=== PATIENT | female | born 1975 | race Caucasian/White ===

== ENCOUNTER 2017-09-23 19:20 | Emergency (ER) | payer MEDICAID ==
[2017-09-23 20:04] LABS: BASOPHILS % (AUTO) 0.4 %; EOSINOPHILS # (AUTO) 0.1 10^3/uL (0.0-0.7); EOSINOPHILS % (AUTO) 2.2 %; HGB - HEMOGLOBIN 13.9 g/dL (12.0-16.0); LYMPHOCYTES # (AUTO) 0.4 10^3/uL (1.5-3.5); LYMPHOCYTES % (AUTO) 8.8 %; MEAN CORPUSCULAR HEMOGLOBIN 32.8 pg (27.0-31.0); MEAN CORPUSCULAR HGB CONC 33.8 g/dL (32.0-36.0); MEAN CORPUSCULAR VOLUME 97.1 fL (81.0-99.0); MEAN PLATELET VOLUME 7.6 fL (7.9-10.8); MONOCYTES # (AUTO) 0.4 10^3/uL (0.0-1.0); MONOCYTES % (AUTO) 8.2 %; NEUTROPHILS % (AUTO) 80.4 %; PLT - PLATELET COUNT 241 10^3/uL (130-450); RED BLOOD COUNT 4.23 10^6/uL (4.20-5.40); RED CELL DISTRIBUTION WIDTH 14.5 % (12.0-15.0)
[2017-09-23 20:14] LABS: ALBUMIN 3.9 g/dL (3.2-5.5); ALBUMIN/GLOBULIN RATIO 1.1 (1.0-2.2); BILIRUBIN,TOTAL 1.1 mg/dL (0.2-1.0); CALCIUM 9.1 mg/dL (8.5-10.3); CREATININE 0.7 mg/dL (0.4-1.0); TOTAL PROTEIN 7.5 g/dL (6.7-8.2)
[2017-09-23] MEDS ORDERED: SODIUM CHLORIDE 0.9% 1,000 ML IV ONE ×2 (20:24→21:26)
[2017-09-23] MEDS ORDERED: KETOROLAC 60 MG/2 ML VIAL IVP STA (20:24)
[2017-09-23] MEDS ORDERED: ONDANSETRON 4 MG/2 ML VIAL IVP STA (20:24)
[2017-09-23] MEDS ORDERED: MORPHINE 10 MG/ML VIAL IVP STA (21:26)
--- NOTE | 2017-09-23 21:31 | CT Report ---
EXAM: CT HEAD EXAM DATE: 09/23/2017 09:14 PM. CLINICAL HISTORY: Headaches, hx of breast CA. COMPARISON: None. TECHNIQUE: Multiaxial CT images were obtained from the foramen magnum to the vertex. Reformats: Coron al. IV contrast: None. In accordance with CT protocol optimization, one or more of the following dose reduction techniques w ere utilized for this exam: automated exposure control, adjustment of mA and/or KV based on patient s ize, or use of iterative reconstructive technique. FINDINGS: Parenchyma: No intraparenchymal hemorrhage. No evidence of mass, midline shift, or CT findings of inf arction. Johnson-white differentiation is distinct. Extraaxial Spaces: Normal for age. No subdural or epidural collections. Ventricles: Normal in size and position. Sinuses and Orbits: Imaged paranasal sinuses, orbits, and mastoids show no significant abnormality. Bones: Unremarkable. Other: None. IMPRESSION: Normal head CT. [facility] Referring Provider Line: [phone] SITE ID: [id number]
[2017-09-23 21:39] VITALS: BP 144/109
[2017-09-23] MEDS ORDERED: PSEUDOEPHEDRINE 30 MG TABLET PO STA (22:12)
[2017-09-23 22:27] LABS: BILIRUBIN,URINE NEGATIVE (NEGATIVE); CLARITY,URINE CLEAR (CLEAR); GLUCOSE, URINE (UA) NEGATIVE (NEGATIVE); KETONES,URINE (UA) NEGATIVE (NEGATIVE); LEUKOCYTE ESTERASE, URINE NEGATIVE (NEGATIVE); NITRITE,URINE NEGATIVE (NEGATIVE); OCCULT BLOOD,URINE NEGATIVE (NEGATIVE); PH,URINE 6.5 PH (5.0-7.5); PROTEIN,URINE NEGATIVE (NEGATIVE); UROBILINOGEN,URINE 0.2 (NORMAL) E.U./dL (NORMAL)
[2017-09-23] MEDS ORDERED: ONDANSETRON ODT 4 MG Prepack 2 TL STA (22:39)
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
== END 2017-09-23 22:49 | disposition home or self-care (01) ==
LOC: ED 19:20
DX: J06.9 Acute upper respiratory infection, unspecified (principal); R51 Headache; C50.919 Malignant neoplasm of unspecified site of unspecified female breast; Z90.10 Acquired absence of unspecified breast and nipple; I10 Essential (primary) hypertension; Z92.21 Personal history of antineoplastic chemotherapy; Z92.3 Personal history of irradiation
CPT/HCPCS: 36415; 70450; 80053; 81003; 83690; 85025; 87040; 87275; 87276; 96361; 96374; 96375; 99283; 99284; A9270; 81001; 87086

== ENCOUNTER 2017-11-26 08:00 | Outpatient (CLI) | payer MEDICAID ==
[2017-11-26 13:17] LABS: ALBUMIN 3.8 g/dL (3.2-5.5); ALKALINE PHOSPHATASE 105 IU/L (42-121); ALT ALANINE AMINOTRANSFERASE 61 IU/L (10-60); AST ASPARTATE AMINOTRANSFERASE 71 IU/L (10-42); BUN - BLOOD UREA NITROGEN 12 mg/dL (6-20); CARBON DIOXIDE - CO2 28 mmol/L (21-32); CHLORIDE 98 mmol/L (101-111); CHOL/HDL RATIO 4.4 (<4.4); CHOLESTEROL 215 mg/dL; CREATININE 0.8 mg/dL (0.4-1.0); GFR - MDRD 78 (>89); GLUCOSE 110 mg/dL (70-100); HDL CHOLESTEROL 49 mg/dL; LDL CHOLESTEROL,CALCULATED 118 mg/dL; LDL/HDL RATIO 2.4 (<4.4); SODIUM 134 mmol/L (135-145); TOTAL PROTEIN 7.6 g/dL (6.7-8.2); VLDL CHOLESTEROL 48 mg/dL
== END 2017-11-26 08:01 | disposition home or self-care (01) ==
LOC: LAB.WCP 08:00
PROVIDERS: ATTEND Physician Assistant Medical
DX: Z00.00 Encounter for general adult medical examination without abnormal findings (principal)
CPT/HCPCS: 36415; 80053; 80061; 83721; 84443

== ENCOUNTER 2018-08-10 10:21 | Emergency (ER) | payer OTHER ==
[2018-08-10 11:07] LABS: BASOPHILS % (AUTO) 0.5 %; EOSINOPHILS % (AUTO) 0.9 %; HGB - HEMOGLOBIN 12.8 g/dL (12.0-16.0); LYMPHOCYTES # (AUTO) 0.2 10^3/uL (1.5-3.5); LYMPHOCYTES % (AUTO) 5.3 %; MEAN CORPUSCULAR HEMOGLOBIN 36.3 pg (27.0-31.0); MEAN CORPUSCULAR HGB CONC 34.8 g/dL (32.0-36.0); MEAN CORPUSCULAR VOLUME 104.5 fL (81.0-99.0); MEAN PLATELET VOLUME 7.6 fL (7.9-10.8); MONOCYTES # (AUTO) 0.2 10^3/uL (0.0-1.0); MONOCYTES % (AUTO) 6.6 %; NEUTROPHILS # (AUTO) 2.8 10^3/uL (1.5-6.6); NEUTROPHILS % (AUTO) 86.7 %; PLT - PLATELET COUNT 194 10^3/uL (130-450); RED BLOOD COUNT 3.53 10^6/uL (4.20-5.40); RED CELL DISTRIBUTION WIDTH 14.4 % (12.0-15.0); WHITE BLOOD COUNT 3.2 x10^3/uL (4.8-10.8)
[2018-08-10 11:23] LABS: ALBUMIN/GLOBULIN RATIO 0.9 (1.0-2.2); CALCIUM 9.2 mg/dL (8.5-10.3); CREATININE 0.8 mg/dL (0.4-1.0); TOTAL PROTEIN 8.3 g/dL (6.7-8.2)
[2018-08-10 12:04] LABS: GLUCOSE, URINE (UA) NEGATIVE (NEGATIVE); KETONES,URINE (UA) TRACE mg/dL (NEGATIVE); LEUKOCYTE ESTERASE, URINE NEGATIVE (NEGATIVE); NITRITE,URINE NEGATIVE (NEGATIVE); OCCULT BLOOD,URINE NEGATIVE (NEGATIVE); PROTEIN,URINE NEGATIVE (NEGATIVE); UROBILINOGEN,URINE 1 (NORMAL) E.U./dL (NORMAL)
[2018-08-10 12:08] LABS: BILIRUBIN,URINE NEGATIVE (NEGATIVE); CLARITY,URINE CLEAR (CLEAR); ICTOTEST,URINE NEGATIVE
[2018-08-10] MEDS ORDERED: ONDANSETRON 4 MG/2 ML VIAL IVP STA (12:14)
[2018-08-10] MEDS ORDERED: LOPERAMIDE 2 MG CAPSULE PO STA (12:14)
[2018-08-10] MEDS ORDERED: SODIUM CHLORIDE 0.9% 1,000 ML IV ONE (12:14)
[2018-08-10] MEDS ORDERED: LACTATED RINGERS 1,000 ML IV STA (12:15)
--- NOTE | 2018-08-10 12:17 | ED Physician Documentation ---
PD HPI NVD - Stated complaint Stated Complaint: N/V/D - Chief complaint Chief Complaint: Abd Pain - History obtained from History obtained from: Patient, Family - History of Present Illness Timing - onset: Yesterday (Sick since yesterday with vomiting and diarrhea. There is no significant abdominal pain but she did have a fever 103 at home. Her granddaughter had a similar illness marked with vomiting and diarrhea. In contrast of the nurse's notes she has not been sick for 3 days. She has a history of breast cancer in remission, not currently under chemotherapy. She has had a hysterectomy and oophorectomy as well as bilateral mastectomy. More recently she has had elevated liver enzymes, is up to 1100 at another facility. So today's liver enzymes are better. She is being worked up for hemochromatosis and had therapeutic phlebotomy for same.) Review of Systems Ten Systems: 10 systems reviewed and negative Constitutional: reports: Fever, Chills, Fatigue Nose: denies: Rhinorrhea / runny nose, Congestion Cardiac: denies: Chest pain / pressure, Palpitations Respiratory: denies: Dyspnea, Cough GI: reports: Nausea, Vomiting, Diarrhea. 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: Hysterectomy, Mastectomy, Other - Present Medications Home Medications: Ambulatory Orders Medication Instructions Recorded Confirmed Loperamide [Imodium] 2 mg PO QID PRN #10 capsule 08/10/18 Ondansetron Odt [Zofran] 4 mg TL Q6H PRN #10 tablet 08/10/18 Oxycodone HCl/Acetaminophen 1 - 2 each PO Q6H PRN #14 tablet 08/10/18 [Percocet 5-325 mg Tablet] Venlafaxine ER [Effexor ER] 1 tab PO DAILY 08/10/18 08/10/18 - Allergies Allergies/Adverse Reactions: Allergies Allergy/AdvReac Type Severity Reaction Status Date / Time docetaxel Allergy Unknown Verified 08/10/18 10:50 paclitaxel Allergy Unknown Verified 08/10/18 10:50 peanut Allergy Unknown Verified 08/10/18 11:43 Sulfa (Sulfonamide Allergy Edema Verified 08/10/18 11:43 Antibiotics) morphine AdvReac Itching Verified 08/10/18 14:26 - Social History Does the pt smoke?: No Smoking Status: Never smoker Does the pt drink ETOH?: Yes Does the pt have substance abuse?: No - Immunizations Immunizations are current?: Yes - POLST Patient has POLST: No PD ED PE NORMAL - Vitals Vital signs reviewed: Yes - General General: Alert and oriented X 3, No acute distress - HEENT HEENT: PERRL - Neck Neck: Supple, no meningeal sign, No bony TTP - Cardiac Cardiac: RRR, No murmur - Respiratory Respiratory: No respiratory distress, Clear bilaterally - Abdomen Abdomen: Normal bowel sounds, Soft, Non tender - Derm Derm: Normal color, Warm and dry - Extremities Extremities: No edema, No calf tenderness / cord - Neuro Neuro: Alert and oriented X 3, Normal speech Results - Vitals Vitals: Vital Signs - 24 hr 08/10/18 08/10/18 08/10/18 10:42 11:54 13:40 Temperature 36.9 C 37.1 C Heart Rate 108 H 106 H 100 Respiratory 18 16 Rate Blood Pressure 140/93 H 154/98 H O2 Saturation 106 H 99 99 08/10/18 08/10/18 08/10/18 15:00 15:15 16:12 Temperature 37.3 C Heart Rate 84 96 87 Respiratory 14 16 18 Rate Blood Pressure 140/97 H 140/97 H 113/77 O2 Saturation 98 98 99 Oxygen O2 Source Room air - Labs Labs: Laboratory Tests 08/10/18 08/10/18 08/10/18 10:52 11:02 11:02 WBC 3.2 L RBC 3.53 L Hgb 12.8 Hct 36.9 L MCV 104.5 H MCH 36.3 H MCHC 34.8 RDW 14.4 Plt Count 194 MPV 7.6 L Neut # (Auto) 2.8 Lymph # (Auto) 0.2 L [place] # (Auto) 0.2 Eos # (Auto) 0.0 Baso # (Auto) 0.0 Absolute Nucleated RBC 0.00 Nucleated RBC % 0.0 Sodium 133 L Potassium 3.6 Chloride 98 L Carbon Dioxide 25 Anion Gap 10.0 BUN 5 L Creatinine 0.8 Estimated GFR (MDRD) 78 L Glucose 110 H Calcium 9.2 Total Bilirubin 1.0 AST 180 H ALT 131 H Alkaline Phosphatase 107 Total Protein 8.3 H Albumin 4.0 Globulin 4.3 H Albumin/Globulin Ratio 0.9 L Lipase 24 Urine Color Urine Clarity Urine pH Ur Specific [place] Urine Protein Urine Glucose (UA) Urine Ketones Urine Occult Blood Urine Nitrite Urine Bilirubin Urine Urobilinogen Ur Leukocyte Esterase Ur Microscopic Review Urine Culture Comments Influenza A (Rapid) Negative Influenza B (Rapid) Negative 08/10/18 11:50 WBC RBC Hgb Hct MCV MCH MCHC RDW Plt Count MPV Neut # (Auto) Lymph # (Auto) [place] # (Auto) Eos # (Auto) Baso # (Auto) Absolute Nucleated RBC Nucleated RBC % Sodium Potassium Chloride Carbon Dioxide Anion Gap BUN Creatinine Estimated GFR (MDRD) Glucose Calcium Total Bilirubin AST ALT Alkaline Phosphatase Total Protein Albumin Globulin Albumin/Globulin Ratio Lipase Urine Color DARK YELLOW Urine Clarity CLEAR Urine pH 5.0 Ur Specific [place] >=1.030 H Urine Protein NEGATIVE Urine Glucose (UA) NEGATIVE Urine Ketones TRACE Urine Occult Blood NEGATIVE Urine Nitrite NEGATIVE Urine Bilirubin NEGATIVE Urine Urobilinogen 1 (NORMAL) Ur Leukocyte Esterase NEGATIVE Ur Microscopic Review NOT INDICATED Urine Culture Comments NOT INDICATED Influenza A (Rapid) Influenza B (Rapid) PD MEDICAL DECISION MAKING - ED course ED course: This is a 43-year-old woman with what seems like viral gastroenteritis. She has known gallstones but is not tender. She is elevated liver enzymes but per her recollection these numbers are actually significantly better than they were at another facility recently. During her emergency department course she had a more prominent headache not associated with neck stiffness. This was resistant to treatment with ibuprofen and she was sent for a CT. But after pain medication her headache resolved. She felt much better and passed a p.o. challenge. Departure - Departure Disposition: 01 Home, Self Care Clinical Impression: Vomiting, Diarrhea, Headache Condition: Good Record reviewed to determine appropriate education?: Yes Instructions: ED Vomiting Diarrhea Nonspecific Ad Prescriptions: Loperamide [Imodium] 2 mg PO QID PRN #10 capsule PRN Reason: Diarrhea Ondansetron Odt [Zofran] 4 mg TL Q6H PRN #10 tablet PRN Reason: Nausea / Vomiting Oxycodone HCl/Acetaminophen [Percocet 5-325 mg Tablet] 1 - 2 each PO Q6H PRN #14 tablet PRN Reason: pain Comments: ASK YOUR ONCOLOGIST ABOUT THE APPROPRIATENESS OF WORKING YOU UP FOR SYL'S DISEASE IF HE HAS NOT ALREADY/. If not better in 36 hours or anytime if worse please return for reevaluation. Discharge Date/Time: 08/10/18 16:12
[2018-08-10] MEDS ORDERED: IBUPROFEN 600 MG TABLET PO STA (13:10)
[2018-08-10] MEDS ORDERED: MORPHINE 2 MG/ML CARPUJECT IVP STA (14:09)
[2018-08-10] MEDS ORDERED: diphenhydrAMINE INJ 50 MG/ML VIAL IVP STA (14:36)
--- NOTE | 2018-08-10 15:43 | CT Report ---
Reason: headache Procedure Date: 08/10/2018 Accession Number: [id number] / [id number] Procedure: CT - HEAD WO CPT Code: FULL RESULT: EXAM: CT HEAD EXAM DATE: 08/10/2018 02:54 PM. CLINICAL HISTORY: Headache. COMPARISON: HEAD W/O 09/23/2017 9:06 PM. TECHNIQUE: Multiaxial CT images were obtained from the foramen magnum to the vertex. Reformats: Sagittal and coronal. IV contrast: None. In accordance with CT protocol optimization, one or more of the following dose reduction techniques were utilized for this exam: automated exposure control, adjustment of mA and/or KV based on patient size, or use of iterative reconstructive technique. FINDINGS: Parenchyma: No intraparenchymal hemorrhage. No evidence of mass, midline shift, or CT findings of infarction. Johnson-white differentiation is distinct. Extraaxial Spaces: Normal for age. No subdural or epidural collections identified. Ventricles: Normal in size and position. Sinuses and Orbits: Imaged paranasal sinuses, orbits, and mastoids show no significant abnormality. Bones: No evidence of fracture or calvarial defect. Other: None. IMPRESSION: No acute intracranial abnormality. [facility]
[2018-08-10 16:12] VITALS: BP 113/77
== END 2018-08-10 16:12 | disposition home or self-care (01) ==
LOC: ED 10:21
DX: R11.2 Nausea with vomiting, unspecified (principal); R19.7 Diarrhea, unspecified; R51 Headache; I10 Essential (primary) hypertension; Z85.3 Personal history of malignant neoplasm of breast; Z92.21 Personal history of antineoplastic chemotherapy; Z90.710 Acquired absence of both cervix and uterus; Z90.721 Acquired absence of ovaries, unilateral; Z90.13 Acquired absence of bilateral breasts and nipples
CPT/HCPCS: 36415; 70450; 80053; 81003; 83690; 85025; 87275; 87276; 96361; 96374; 96375; 99283; A9270; J1200; J7120; 81001; 87086

== ENCOUNTER 2018-09-11 13:54 | Outpatient (CLI) | payer OTHER ==
--- NOTE | 2018-09-11 17:05 | DEXA Report ---
Reason: L BREAST CANCER Procedure Date: 09/11/2018 Accession Number: [id number] / [id number] Procedure: DEX - Dexa Spine and/or Hip CPT Code: FULL RESULT: EXAM: Dexa Spine and/or Hip DATE: 09/11/2018 2:12 PM CLINICAL HISTORY: L BREAST CANCER TECHNIQUE: Dual energy x-ray absorptiometry (DXA) was performed on a [employer] System. Regions measured are the AP Spine, femoral neck, and if needed forearm. COMPARISON: None. In accordance with the International Society for Clinical Densitometry (ISCD) guidelines, data from previous exams may be reanalyzed using current recommendations and techniques. This is done to allow a more accurate basis for comparison with the current study. FINDINGS: The data for the lumbar spine is as follows: BMD (g/cm/cm) T-SCORE Z-SCORE REGION L1 1.357 1.9 1.4 L2 1.287 0.7 0.3 L3 1.551 2.9 2.5 L4 1.565 3.0 2.6 TOTAL 1.448 2.2 1.8 NOTE: All evaluable vertebrae are used for classification The data for the hip is as follows: BMD (g/cm/cm) T-SCORE Z-SCORE REGION Neck 1.073 0.3 0.5 TOTAL 1.066 0.5 0.4 NOTE: The femoral neck or total proximal femur, whichever is lowest, is used for classification. IMPRESSION: THE WHO CLASSIFICATION BASED ON THE INTERNATIONAL REFERENCE STANDARD IS NORMAL. THE FRACTURE RISK IS NOT INCREASED. RECOMMENDATION: Patients with diagnosis of osteoporosis or osteopenia should have regular bone mineral density assessment. For those eligible for Medicare, routine testing is allowed once every 2 years. Testing frequency can be increased for patients who have rapidly progressing disease or for those who are receiving medical therapy to restore bone mass. COMMENT: World Health Organization (WHO) definitions for osteoporosis and osteopenia: NORMAL BMD: T-score at -1.0 or higher, fracture risk is low OSTEOPENIA BMD: T-score between -1.0 and -2.5, fracture risk is increased. OSTEOPOROSIS BMD: T-score at -2.5 or lower, fracture risk is high. National Osteoporosis Foundation recommends: 1. Obtain adequate dietary calcium (at least 1200 mg per day) and vitamin D (400-800 international units per day). 2. Participate, as appropriate, in regular weightbearing and muscle-strengthening exercise. 3. Avoid tobacco use and reduce alcohol and caffeine intake. 4. For more detailed information see the website at www.NOF.org.
== END 2018-09-11 13:55 | disposition home or self-care (01) ==
LOC: DI 13:54
PROVIDERS: ATTEND Internal Medicine Hematology & Oncology
DX: Z78.0 Asymptomatic menopausal state (principal)
CPT/HCPCS: 77080

== ENCOUNTER 2018-11-30 12:42 | Outpatient (CLI) | payer OTHER ==
--- NOTE | 2018-11-30 14:59 | Ultrasound Report ---
Reason: LUQ BREAST LUMP, HX BILAT MASTECTOMY Procedure Date: 11/30/2018 Accession Number: [id number] / [id number] Procedure: US - Breast Unilateral Limited CPT Code: FULL RESULT: EXAM: Breast Unilateral Limited DATE: 11/30/2018 1:33 PM CLINICAL HISTORY: History of bilateral mastectomy. Currently has left upper quadrant palpable mass. TECHNIQUE: Targeted left breast ultrasound was performed with special attention given to the left chest wall and axilla COMPARISON: No postoperative ultrasounds available. FINDINGS: There is a transverse mastectomy scar in the left chest wall. The palpable abnormality is directly beneath the scar and there is no suspicious abnormality. In addition, the patient complains of left axillary tenderness. Targeted ultrasound of the left axilla is negative. IMPRESSION: Negative examination.
== END 2018-11-30 12:43 | disposition home or self-care (01) ==
LOC: DI 12:42
PROVIDERS: ATTEND Family Medicine
DX: N63.21 Unspecified lump in the left breast, upper outer quadrant (principal); C50.919 Malignant neoplasm of unspecified site of unspecified female breast; Z90.13 Acquired absence of bilateral breasts and nipples; Z17.0 Estrogen receptor positive status [ER+]
CPT/HCPCS: 76642

== ENCOUNTER → 2021-01-30 | Outpatient (CLI) | payer MEDICAID ==
--- NOTE | 2021-01-30 14:54 | XRAY Report ---
PROCEDURE: Shoulder 3 View LT INDICATIONS: FROZEN L SHOULDER TECHNIQUE: 4 views of the left shoulder and one view of the right shoulder were acquired. COMPARISON: None. FINDINGS: Bones: No fractures or dislocations. Mild left acromial downsloping. No suspicious bony lesions. V isualized ribs appear intact. Soft tissues: Small calcification posterior to the left humeral head. Surgical clips in the left axil la. IMPRESSION: 1. Small soft tissue calcification posterior to the left humeral head suggesting calcific tendinitis. 2. Mild left acromial downsloping may predispose to rotator cuff impingement. Reviewed by: Kezia Villagomez MD on 01/30/2021 2:53 PM PDT Approved by: Kezia Villagomez MD on 01/30/2021 2:53 PM PDT Station ID: [id number]
== END ==
LOC: DI.N 08:10
PROVIDERS: ATTEND Physician Assistant
DX: M75.02 Adhesive capsulitis of left shoulder (principal)

== ENCOUNTER 2022-01-11 08:33 | Day surgery (SDC) | payer MEDICARE, MEDICAID ==
[2022-01-11] MEDS ORDERED: LACTATED RINGERS 1,000 ML IV ONE ×2 (08:58→11:56)
--- NOTE | 2022-01-11 10:08 | ANESTHESIA ---
Pre-Anesthesia VS, & Labs - Diagnosis hx of colon polyps, bloody emesis - Procedure colonoscopy and egd Vital Signs: Temp Pulse Resp BP Pulse Ox 36.2 C L 79 20 123/73 100 01/11/22 08:35 01/11/22 08:35 01/11/22 08:35 01/11/22 08:35 01/11/22 08:35 Height: 5 ft 5 in Weight (kg): 70 kg Body Mass Index: 25.7 BMI Classification: Overweight - NPO >8 hours - Is Patient ?: No Home Medications and Allergies Allergies/Adverse Reactions: Allergies Allergy/AdvReac Type Severity Reaction Status Date / Time adhesive tape Allergy Intermediate Rash Verified 01/10/22 11:57 docetaxel Allergy Unknown Verified 05/10/19 11:30 paclitaxel Allergy Unknown Verified 05/10/19 11:30 peanut Allergy Unknown Verified 05/10/19 11:30 Sulfa (Sulfonamide Allergy Edema Verified 05/10/19 11:30 Antibiotics) morphine AdvReac Itching Verified 05/10/19 11:30 Anes History & Medical History - Anesthetic History Anesthesia Complications: reports: Post-Operative Nausea/Vomiting Family history of Anesthesia Complications: Denies Family history of Malignant Hyperthermia: Denies - Medical History Cardiovascular: reports: None Pulmonary: reports: None Gastrointestinal: reports: Colon polyps, Cirrhosis Urinary: reports: Chronic bladder infection Neuro: reports: None Musculoskeletal: reports: None, Chronic back pain Endocrine/Autoimmune: reports: None Blood Disorders: reports: None Skin: reports: None Smoking Status: Never smoker Psychosocial: reports: No issues indicated History of Cancer?: Yes (breast cancer 2017) - Surgical History General: reports: Colonoscopy, Other Gynecologic: reports: Hysterectomy, Oophrectomy, Mastectomy, Other Exam General: Alert, Oriented x3, Cooperative, No acute distress Dental: WNL Mouth Openin Fingerbreadth Mallampati classification: II Thyromental Distance: less than 4 cm Respiratory: Lungs clear, Normal breath sounds, No respiratory distress, No accessory muscle use Cardiovascular: Regular rate, Normal S1, Normal S2, No murmurs Mental/Cognitive Status: Alert/Oriented X3, Normal for patient Cognitive Status: Within normal limits Plan Anesthesia Type: General, Total IV Consent for Procedure(s) Verified and Reviewed: Yes Code Status: Attempt Resuscitation ASA classification: 2-Mild systemic disease Is this case an emergency?: No
[2022-01-11 10:15] LABS: BASOPHILS % (AUTO) 1.2 %; EOSINOPHILS # (AUTO) 0.1 10^3/uL (0.0-0.7); EOSINOPHILS % (AUTO) 1.8 %; HGB - HEMOGLOBIN 11.7 g/dL (12.0-16.0); LYMPHOCYTES # (AUTO) 1.3 10^3/uL (1.5-3.5); MEAN CORPUSCULAR HEMOGLOBIN 34.4 pg (27.0-31.0); MEAN CORPUSCULAR HGB CONC 34.4 g/dL (32.0-36.0); MEAN PLATELET VOLUME 11.1 fL (7.9-10.8); MONOCYTES # (AUTO) 0.3 10^3/uL (0.0-1.0); MONOCYTES % (AUTO) 8.9 %; NEUTROPHILS # (AUTO) 1.5 10^3/uL (1.5-6.6); NEUTROPHILS % (AUTO) 46.8 %; PLT - PLATELET COUNT 189 10^3/uL (130-450); RED CELL DISTRIBUTION WIDTH 15.7 % (12.0-15.0); WHITE BLOOD COUNT 3.3 x10^3/uL (4.8-10.8)
[2022-01-11 10:41] LABS: % IRON SATURATION 84 % (20-50); IRON 178 ug/dL (28-170); TOTAL IRON BINDING CAPACITY 211 ug/dL (250-450); TRANSFERRIN 151 mg/dL (192-382)
[2022-01-11] MEDS ORDERED: MIDAZOLAM 2 MG/2 ML VIAL ONE (10:41)
[2022-01-11] MEDS ORDERED: ONDANSETRON 4 MG/2 ML VIAL ONE ×2 (10:42→12:14)
[2022-01-11] MEDS ORDERED: PROPOFOL 500 MG/50 ML 500 MG/50 ML VIAL ONE (10:57)
[2022-01-11] MEDS ORDERED: PROPOFOL 200 MG/20 ML VIAL IVP ONE ×3 (10:57→12:00)
[2022-01-11] MEDS ORDERED: LIDOCAINE-MPF 2% 5 ML VIAL ONE (10:57)
[2022-01-11 12:18] VITALS: BP 112/74
--- NOTE | 2022-01-11 12:59 | ANESTHESIA POST OP EVALUATION ---
Anesthesia Post Eval - Post Anesthesia Eval Vitals: Last Vital Signs Temp 36.3 C L 01/11/22 11:56 Pulse 75 01/11/22 12:17 Resp 14 01/11/22 12:17 BP 112/74 01/11/22 12:17 Pulse Ox 100 01/11/22 12:17 CV Function Including HR & BP: Stable Pain Control: Satisfactory Nausea & Vomiting: Negative Mental Status: Baseline Respiratory Status: Airway Patent Hydration Status: Satisfactory Anesthesia Complications: None
== END 2022-01-11 08:34 | disposition home or self-care (01) ==
LOC: SDS 08:33
PROVIDERS: ATTEND Surgery
PROC: 0DBK8ZX Excision of Ascending Colon, Via Natural or Artificial Opening Endoscopic, Diagnostic (ICD-10-PCS; 2022-01-11)
PROC: 0DB98ZX Excision of Duodenum, Via Natural or Artificial Opening Endoscopic, Diagnostic (ICD-10-PCS; principal; 2022-01-11 10:30)
PROC: 0DB78ZX Excision of Stomach, Pylorus, Via Natural or Artificial Opening Endoscopic, Diagnostic (ICD-10-PCS; 2022-01-11 10:30)
DX: Z12.11 Encounter for screening for malignant neoplasm of colon (principal); D12.2 Benign neoplasm of ascending colon; K29.50 Unspecified chronic gastritis without bleeding; I10 Essential (primary) hypertension; Z80.9 Family history of malignant neoplasm, unspecified; Z85.3 Personal history of malignant neoplasm of breast
CPT/HCPCS: 36415; 43239; 45380; 82728; 83540; 84466; 85025; J7120

== ENCOUNTER 2022-01-12 08:00 | Outpatient (CLI) | payer MEDICARE, MEDICAID | END 2022-01-12 23:59 | disposition home or self-care (01) | LOC: LAB.N 08:00 | PROVIDERS: ATTEND Nurse Practitioner | DX: R30.0 Dysuria (principal) ==

== ENCOUNTER 2022-01-12 08:00 | Outpatient (CLI) | payer MEDICARE, MEDICAID | END 2022-01-12 23:59 | disposition home or self-care (01) | LOC: LAB.N 08:00 | PROVIDERS: ATTEND Nurse Practitioner | DX: N39.0 Urinary tract infection, site not specified (principal) | CPT/HCPCS: 87077; 87086; 87181 ==

== ENCOUNTER 2022-03-06 08:00 | Outpatient (CLI) | payer MEDICARE, MEDICAID | END 2022-03-06 23:59 | disposition home or self-care (01) | LOC: LAB.WCP 08:00 | PROVIDERS: ATTEND Physician Assistant Medical | DX: N39.0 Urinary tract infection, site not specified (principal) | CPT/HCPCS: 87086 ==

== ENCOUNTER 2022-03-20 14:44 | Outpatient (CLI) | payer MEDICARE, MEDICAID ==
--- NOTE | 2022-03-21 10:32 | Ultrasound Report ---
PROCEDURE: Retroperitoneal INDICATIONS: UTI TECHNIQUE: Real-time scanning was performed of the retroperitoneal organs, with image documentation. COMPARISON: Abdominal ultrasound 02/08/2022. CT abdomen/pelvis 01/18/2015. FINDINGS: Kidneys: Kidneys are normal in size. Right kidney measures 10.2 cm long; left kidney measures 11.5 cm long. Right renal cortical thickness is 1.6 cm; left renal cortical thickness is 1.7 cm. No shana d masses, hydronephrosis, or nephrolithiasis. Bladder: Pre-void bladder volume is 234 mL. Post-void residual is 21 mL. Pre-void images demonstra te no intraluminal masses or stones. On pre-void images, bilateral ureteral jets are noted with colo r Doppler interrogation. (Of note, ureteral jets may not be detectable in up to 25% of cases due to insufficient differences in specific gravity between ureteral and bladder urine). Miscellaneous: No free abdominal fluid. Incidental note is made of diffusely increased hepatic echo genicity. IMPRESSION: No hydronephrosis or nephrolithiasis. Renal ultrasound is within normal limits. Reviewed by: Dejuan Hurst MD on 03/21/2022 10:30 AM PDT Approved by: Dejuan Hurst MD on 03/21/2022 10:30 AM PDT Station ID: [id number]
== END 2022-03-20 14:45 | disposition home or self-care (01) ==
LOC: DI 14:44
PROVIDERS: ATTEND Physician Assistant Medical
DX: N39.0 Urinary tract infection, site not specified (principal)

== ENCOUNTER 2022-06-18 09:55 | Outpatient (CLI) | payer MEDICARE, MEDICAID ==
[2022-06-18 10:11] LABS: BASOPHILS % (AUTO) 1.1 %; EOSINOPHILS # (AUTO) 0.1 10^3/uL (0.0-0.7); EOSINOPHILS % (AUTO) 3.4 %; HCT - HEMATOCRIT 39.4 % (37.0-47.0); HGB - HEMOGLOBIN 12.6 g/dL (12.0-16.0); LYMPHOCYTES # (AUTO) 1.3 10^3/uL (1.5-3.5); MEAN CORPUSCULAR HEMOGLOBIN 31.8 pg (27.0-31.0); MEAN CORPUSCULAR VOLUME 99.5 fL (81.0-99.0); MEAN PLATELET VOLUME 9.4 fL (7.9-10.8); MONOCYTES # (AUTO) 0.3 10^3/uL (0.0-1.0); MONOCYTES % (AUTO) 9.7 %; NEUTROPHILS # (AUTO) 1.7 10^3/uL (1.5-6.6); NEUTROPHILS % (AUTO) 48.5 %; PLT - PLATELET COUNT 203 10^3/uL (130-450); RED BLOOD COUNT 3.96 10^6/uL (4.20-5.40); RED CELL DISTRIBUTION WIDTH 15.2 % (12.0-15.0); WHITE BLOOD COUNT 3.5 x10^3/uL (4.8-10.8)
== END 2022-06-18 09:56 | disposition home or self-care (01) ==
LOC: LAB 09:55
PROVIDERS: ATTEND Physician Assistant Medical
DX: E83.119 Hemochromatosis, unspecified (principal)
CPT/HCPCS: 36415; 85025

== ENCOUNTER 2022-07-09 08:00 | Outpatient (CLI) | payer MEDICARE, MEDICAID ==
[2022-07-09 18:32] LABS: BILIRUBIN,URINE NEGATIVE (NEGATIVE); GLUCOSE, URINE (UA) 100 mg/dL (NEGATIVE); KETONES,URINE (UA) NEGATIVE (NEGATIVE); LEUKOCYTE ESTERASE, URINE MODERATE (NEGATIVE); NITRITE,URINE POSITIVE (NEGATIVE); OCCULT BLOOD,URINE NEGATIVE (NEGATIVE); PH,URINE 6.5 PH (5.0-7.5); PROTEIN,URINE 30 mg/dL (NEGATIVE); UROBILINOGEN,URINE 4 E.U./dL (NORMAL)
[2022-07-09 18:36] LABS: CLARITY,URINE CLOUDY (CLEAR)
[2022-07-09 18:59] LABS: RBC,URINE 0-5 /HPF (0-5); WBC,URINE >25 /HPF (0-5)
[2022-07-09 19:00] LABS: BACTERIA,URINE Many /HPF (None Seen); SQUAMOUS EPITHELIAL CELL,UR FEW Squamous (<= Few)
== END 2022-07-09 23:59 | disposition home or self-care (01) ==
LOC: LAB.WCP 08:00
PROVIDERS: ATTEND Physician Assistant
DX: R30.0 Dysuria (principal)
CPT/HCPCS: 81001; 87086; 87181

== ENCOUNTER 2022-10-16 08:00 | Outpatient (CLI) | payer MEDICARE, MEDICAID | END 2022-10-16 23:59 | disposition home or self-care (01) | LOC: LAB.WCP 08:00 | PROVIDERS: ATTEND Physician Assistant Medical | DX: K80.20 Calculus of gallbladder without cholecystitis without obstruction (principal); R30.0 Dysuria | CPT/HCPCS: 87070; 87086; 87205 ==

== ENCOUNTER 2022-12-20 13:40 | Outpatient (CLI) | payer MEDICARE, MEDICAID | END 2022-12-20 13:41 | disposition home or self-care (01) | LOC: LAB.R 13:40 | PROVIDERS: ATTEND Physician Assistant Medical | DX: K52.9 Noninfective gastroenteritis and colitis, unspecified (principal) | CPT/HCPCS: 87493 ==

== ENCOUNTER 2023-01-02 06:11 | Emergency (ER) | payer MEDICARE, MEDICAID ==
[2023-01-02 06:56] LABS: BASOPHILS % (AUTO) 0.7 %; EOSINOPHILS # (AUTO) 0.1 10^3/uL (0.0-0.7); EOSINOPHILS % (AUTO) 1.9 %; HCT - HEMATOCRIT 39.2 % (37.0-47.0); HGB - HEMOGLOBIN 13.5 g/dL (12.0-16.0); LYMPHOCYTES # (AUTO) 0.9 10^3/uL (1.5-3.5); LYMPHOCYTES % (AUTO) 21.4 %; MEAN CORPUSCULAR HEMOGLOBIN 35.1 pg (27.0-31.0); MEAN CORPUSCULAR HGB CONC 34.4 g/dL (32.0-36.0); MEAN CORPUSCULAR VOLUME 101.8 fL (81.0-99.0); MEAN PLATELET VOLUME 10.6 fL (7.9-10.8); MONOCYTES # (AUTO) 0.4 10^3/uL (0.0-1.0); MONOCYTES % (AUTO) 10.1 %; NEUTROPHILS # (AUTO) 2.8 10^3/uL (1.5-6.6); NEUTROPHILS % (AUTO) 65.9 %; PLT - PLATELET COUNT 118 10^3/uL (130-450); RED BLOOD COUNT 3.85 10^6/uL (4.20-5.40); RED CELL DISTRIBUTION WIDTH 13.9 % (12.0-15.0); WHITE BLOOD COUNT 4.3 x10^3/uL (4.8-10.8)
[2023-01-02 07:07] LABS: ALBUMIN 3.3 g/dL (3.2-5.5); ALBUMIN/GLOBULIN RATIO 0.8 (1.0-2.2); BILIRUBIN,TOTAL 5.5 mg/dL (0.2-1.0); CALCIUM 8.5 mg/dL (8.5-10.3); CREATININE 0.6 mg/dL (0.4-1.0); POTASSIUM 3.7 mmol/L (3.5-5.0); TOTAL PROTEIN 7.7 g/dL (6.7-8.2)
[2023-01-02 07:09] LABS: GLUCOSE, URINE (UA) NEGATIVE (NEGATIVE); KETONES,URINE (UA) 40 mg/dL (NEGATIVE); LEUKOCYTE ESTERASE, URINE NEGATIVE (NEGATIVE); NITRITE,URINE NEGATIVE (NEGATIVE); OCCULT BLOOD,URINE NEGATIVE (NEGATIVE); PH,URINE 8.5 PH (5.0-7.5); PROTEIN,URINE TRACE mg/dL (NEGATIVE); UROBILINOGEN,URINE 4 E.U./dL (NORMAL)
[2023-01-02 07:10] LABS: BILIRUBIN,URINE NEGATIVE (NEGATIVE); CLARITY,URINE CLEAR (CLEAR); ICTOTEST,URINE NEGATIVE
[2023-01-02 07:11] LABS: HCG UR QUAL NEGATIVE
--- NOTE | 2023-01-02 07:25 | ED Physician Documentation ---
PD HPI NVD - Stated complaint Stated Complaint: N/V/D CRAMPING - Chief complaint Chief Complaint: Abd Pain - History obtained from History obtained from: Patient - History of Present Illness Timing - onset: How many days ago (2-3) Timing - duration: Weeks (1) Timing - details: Gradual onset, Still present Associated symptoms: Abdominal pain, Loss of appetite. No: Fever, Near syncope / syncope Contributing factors: No: Sick contact, Bad food Improved by: No: Vomiting Worsened by: Eating Similar symptoms before: Has not had sx before Recently seen: Clinic (had stool study for C. Diff negative about a week ago.) Review of Systems Constitutional: denies: Fever, Chills Nose: denies: Rhinorrhea / runny nose, Congestion Throat: denies: Sore throat Respiratory: denies: Cough GI: reports: Abdominal Pain, Nausea, Vomiting, Diarrhea. denies: Constipation PD PAST MEDICAL HISTORY - Past Medical History Cardiovascular: None Respiratory: None Neuro: None Endocrine/Autoimmune: None GI: Colon polyps, Cirrhosis [employer]: None : Chronic bladder infection HEENT: None Psych: None, Depression, Anxiety, Panic attacks, Claustrophobia Musculoskeletal: None, Chronic back pain Derm: None - Past Surgical History Past Surgical History: Yes General: Colonoscopy, Other /H[employer]: Hysterectomy, Oophrectomy, Mastectomy, Other - Present Medications Home Medications: Ambulatory Orders Medication Instructions Recorded Confirmed Dicyclomine [Bentyl] 10 mg PO Q6H PRN #15 cap 02/08/22 11/25/22 Phenazopyridine HCl [Pyridium] 200 mg PO TID PRN #6 tablet 02/11/22 11/25/22 Ondansetron Odt [Zofran] 4 mg TL Q6H PRN #10 tablet 01/02/23 cephALEXin [Keflex] 500 mg PO TID #20 cap 01/02/23 metroNIDAZOLE [Flagyl] 500 mg PO BID 5 Days #10 tablet 01/02/23 oxyCODONE [Roxicodone] 5 mg PO Q6H PRN #15 tablet 01/02/23 - Allergies Allergies/Adverse Reactions: Allergies Allergy/AdvReac Type Severity Reaction Status Date / Time adhesive tape Allergy Intermediate Rash Verified 02/08/22 06:12 docetaxel Allergy Unknown Verified 02/08/22 06:12 paclitaxel Allergy Unknown Verified 02/08/22 06:12 peanut Allergy Unknown Verified 02/08/22 06:12 Sulfa (Sulfonamide Allergy Edema Verified 02/08/22 06:12 Antibiotics) morphine AdvReac Itching Verified 02/08/22 06:12 - Social History Does the pt smoke?: No Smoking Status: Never smoker Does the pt drink ETOH?: Yes Does the pt have substance abuse?: No - Immunizations Immunizations are current?: Yes - POLST Patient has POLST: No PD ED PE NORMAL - Vitals Vital signs reviewed: Yes - General General: Alert and oriented X 3, No acute distress, Well developed/nourished - Neck Neck: Supple, no meningeal sign, No adenopathy - Cardiac Cardiac: RRR, No murmur - Respiratory Respiratory: No respiratory distress, Clear bilaterally - Abdomen Abdomen: Normal bowel sounds, Soft, Non distended, Other (tender mid to left lower abd with guarding and some percussion tenderness. Moderate distension of abdomen with diminished bowel sounds. ) Results - Vitals Vitals: Vital Signs - 24 hr 01/02/23 01/02/23 01/02/23 06:26 08:34 10:38 Temperature 36.4 C L Heart Rate 102 H 93 81 Respiratory 18 16 16 Rate Blood Pressure 160/98 H 143/83 H 112/74 O2 Saturation 97 98 93 01/02/23 01/02/23 01/02/23 12:11 12:27 13:03 Temperature 36.4 C L Heart Rate 72 69 Respiratory 22 18 20 Rate Blood Pressure 139/75 H O2 Saturation 95 97 Oxygen O2 Source Room air - Labs Labs: Laboratory Tests 01/02/23 01/02/23 01/02/23 06:50 06:50 06:50 WBC 4.3 L RBC 3.85 L Hgb 13.5 Hct 39.2 MCV 101.8 H MCH 35.1 H MCHC 34.4 RDW 13.9 Plt Count 118 L MPV 10.6 Neut # (Auto) 2.8 Lymph # (Auto) 0.9 L [place] # (Auto) 0.4 Eos # (Auto) 0.1 Baso # (Auto) 0.0 Absolute Nucleated RBC 0.00 Nucleated RBC % 0.0 Sodium 135 Potassium 3.7 Chloride 99 L Carbon Dioxide 25 Anion Gap 11.0 BUN 6 Creatinine 0.6 Estimated GFR (MDRD) 106 Glucose 103 H Calcium 8.5 Magnesium 1.8 Ferritin Total Bilirubin 5.5 H AST 149 H ALT 43 Alkaline Phosphatase 178 H Total Protein 7.7 Albumin 3.3 Globulin 4.4 H Albumin/Globulin Ratio 0.8 L Lipase 48 Urine Color Urine Clarity Urine pH Ur Specific [place] Urine Protein Urine Glucose (UA) Urine Ketones Urine Occult Blood Urine Nitrite Urine Bilirubin Urine Urobilinogen Ur Leukocyte Esterase Ur Microscopic Review Urine Culture Comments Urine HCG, Qual 01/02/23 01/02/23 06:50 07:04 WBC RBC Hgb Hct MCV MCH MCHC RDW Plt Count MPV Neut # (Auto) Lymph # (Auto) [place] # (Auto) Eos # (Auto) Baso # (Auto) Absolute Nucleated RBC Nucleated RBC % Sodium Potassium Chloride Carbon Dioxide Anion Gap BUN Creatinine Estimated GFR (MDRD) Glucose Calcium Magnesium Ferritin 193.0 Total Bilirubin AST ALT Alkaline Phosphatase Total Protein Albumin Globulin Albumin/Globulin Ratio Lipase Urine Color DARK YELLOW Urine Clarity CLEAR Urine pH 8.5 H Ur Specific [place] 1.010 Urine Protein TRACE Urine Glucose (UA) NEGATIVE Urine Ketones 40 H Urine Occult Blood NEGATIVE Urine Nitrite NEGATIVE Urine Bilirubin NEGATIVE Urine Urobilinogen 4 H Ur Leukocyte Esterase NEGATIVE Ur Microscopic Review NOT INDICATED Urine Culture Comments NOT INDICATED Urine HCG, Qual NEGATIVE - Rads (name of study) abd/pelvic CT Relevant Findings:: Prelim report reviewed (enlarged liver. Descending and sigmoid colitis. Some diverticula. Lower abd and pelvic ascites. No masses. Normal pancreas. ) PD Medical Decision Making - ED course Complexity details: reviewed results (LFTs elevated with bili 5. Has had elevated bili to 3 in the past by prior labs. ), considered differential, d/w patient Reviewed Lab Results: CT showing descending/sigmoid colitis with some diverticula in the area. There is some abd/pelvic ascites. Some liver enlargement but does not look like hepatic congestion. I would think the ascites is related to the colitis. LFTs are elevated but not alkphos nor lipase. LFTs may be elevated related to current illlness or vomiting. She states only mild alcohol use. Her partner corroborates this. She is having improved pain and no nausea after meds and fluid. Able to take fluids and some bites of crackers without nausea nor increased pain per se. She would like to try discharge with home meds and will return if worsened symptoms again. She does need close followup for eval of symptoms, rpeeat LFTs, and presume repeat CT once well to ensure resolution of bowel wall thickening and the ascites. Departure - Departure Disposition: 01 Home, Self Care Clinical Impression: Lower abdominal pain, Nausea and vomiting, Left sided colitis, Elevated liver enzymes Condition: Stable Record reviewed to determine appropriate education?: Yes Instructions: ED Diverticulitis Follow-Up: April Hubbard PA-C [Primary Care Provider] - Prescriptions: metroNIDAZOLE [Flagyl] 500 mg PO BID 5 Days #10 tablet cephALEXin [Keflex] 500 mg PO TID #20 cap oxyCODONE [Roxicodone] 5 mg PO Q6H PRN #15 tablet PRN Reason: Pain Ondansetron Odt [Zofran] 4 mg TL Q6H PRN #10 tablet PRN Reason: Nausea / Vomiting Comments: Your CT scan shows inflammation of the descending and sigmoid colon consistent with dive reticulitis/colitis. We can treat this with antibiotics as well as anti-inflammatories. I wrote prescription for metronidazole and cephalexin. I also wrote for ondansetron for nausea. Stay well-hydrated. You can try some naproxen or ibuprofen twice daily with food. Add oxycodone every 4-6 hours if needed for pain. You do have elevation of your liver enzymes. Unclear whether this is related to dehydration and vomiting. It would be good to have them rechecked in a few days. Follow-up with your primary care. Your pancreas and pancreatic enzymes appear normal on CT and blood tests. There is some fluid within the abdominal cavity presumably related to the current colitis. That we will want to be evaluated as well for resolution in the next week or 2 as the colitis improves. Follow-up with your primary care in the next day or 2 if possible or early next week. Call for an appointment. Return to the ER if you have worsening pain despite medications, persistent vomiting, fevers or other concerns. I sent a prescription to [facility] pharmacy in [place]. I am prescribing a short course of narcotic pain medication for you. These are potentially dangerous and addictive medications that should be used carefully. These medications may constipate you. Take an [id number] stool softener such as docusate twice daily with plenty of water while taking these medications. If you go 24 hours without a bowel movement, take [id number] MiraLAX, per package instructions. Do not drink or drive while taking these medications. If you received narcotic or sedating medications while in the emergency department do not drive for 24 hours. Store this medication in a safe, secure place and out of reach of children. It is a violation of federal law to give or sell this medication to another person or to use in a manner other than prescribed. The ED will not refill narcotic prescriptions, including prescriptions lost or stolen. You can dispose of unwanted medications at the [facility]'s office or at several pharmacies such as [facility]. Discharge Date/Time: 01/02/23 13:22
[2023-01-02] MEDS ORDERED: KETOROLAC 15 MG/ML VIAL IVP STA (07:42)
[2023-01-02] MEDS ORDERED: ONDANSETRON 4 MG/2 ML VIAL IVP STA (07:42)
[2023-01-02] MEDS ORDERED: SODIUM CHLORIDE 0.9% 1,000 ML IV STA ×2 (07:43)
[2023-01-02] MEDS ORDERED: diphenhydrAMINE INJ 50 MG/ML VIAL IVP STA ×2 (07:44→12:50)
[2023-01-02] MEDS ORDERED: HYDROmorphone 1 MG/ML CARPUJECT IVP STA ×2 (07:44→09:45)
[2023-01-02] MEDS ORDERED: iohexoL-300 100 ML VIAL ONE (07:58)
--- NOTE | 2023-01-02 09:12 | CT Report ---
PROCEDURE: ABDOMEN/PELVIS W INDICATIONS: 4 days abd pain/vomiting/distended. CONTRAST: 100ml Omni TECHNIQUE: After the administration of IV contrast, 5 mm thick sections acquired from the diaphragms to the symp hysis. 5 mm thick coronal and sagittal reformats were acquired. For radiation dose reduction, the f ollowing was used: automated exposure control, adjustment of mA and/or kV according to patient size. COMPARISON: CT abdomen pelvis 07/16/2022 FINDINGS: Image quality: Excellent. Lung bases and heart: Unremarkable. Liver: Liver measures 18.6 cm with diffuse steatosis. Gallbladder and biliary tree: Not visualized. Spleen: No splenomegaly. Pancreas: No pancreatic ductal dilation. Adrenals: No adrenal nodule. Kidneys and ureters: No hydronephrosis. No renal cystic lesion which requires follow up. No solid mas s. Bowel and peritoneum: No bowel distension. There is a relatively thickened appearance: Most notable i n the descending and sigmoid colon. Scattered diverticula are present. Minimal scattered areas of per icolonic stranding are present. However, this is partially obscured by moderate ascites in the abdome n and pelvis including perihepatic and perisplenic fluid. Lymph nodes: No central or retroperitoneal adenopathy. Vessels: No infrarenal aortic aneurysm. PELVIS Reproductive organs: Unremarkable. Bladder: No abnormal wall thickening, accounting for underdistension. Pelvic lymph nodes: No pelvic adenopathy by size criteria. Bones: No aggressive osseous abnormality. Other: No significant ventral or inguinal hernia. There is unchanged appearance of thickening in the anterior mesenteric fat at the level of the umbilicus which was visualized on 07/16/2022. It is unchan ged. IMPRESSION: Interval development of abdominal and pelvic ascites. Hepatomegaly with steatosis. Relatively diffuse appearance of colonic thickening most prominent in the ascending and sigmoid colon . All appearance could be related to incomplete distention, colitis should be considered. While overall appearance could be secondary to diverticulitis, given the relatively sparse number of diverticula o ther etiologies such as diffuse infection or inflammation should be considered. Reviewed by: Estela Reis MD on 01/02/2023 9:11 AM PDT Approved by: Estela Reis MD on 01/02/2023 9:11 AM PDT Station ID: [id number]
[2023-01-02] MEDS ORDERED: iohexoL-300 100 ML VIAL IVP ONE (09:14)
[2023-01-02] MEDS ORDERED: cefTRIAXone 1 GM VIAL IVP STA (10:38)
[2023-01-02] MEDS ORDERED: cefTRIAXone 1 GM in SODIUM CHLORIDE 0.9% MINIBAG 100 ML IV STA (10:39)
[2023-01-02] MEDS ORDERED: metroNIDAZOLE 500 MG/100 ML 500 MG/100 ML BAG IV SCH (11:00)
[2023-01-02 12:11] VITALS: BP 139/75
== END 2023-01-02 13:22 | disposition home or self-care (01) ==
LOC: ED 06:11
DX: K52.9 Noninfective gastroenteritis and colitis, unspecified (principal); R74.01 Elevation of levels of liver transaminase levels; Z79.899 Other long term (current) drug therapy
CPT/HCPCS: 36415; 74177; 80053; 81003; 81025; 82728; 83690; 83735; 85025; 96365; 96375; 96376; 99284; 99285; J1170; J1200; Q9967; 81001; 87086